=== PATIENT | male | born 2000 | race Caucasian/White ===

== ENCOUNTER 2021-08-16 18:10 | Emergency (ER) | payer OTHER ==
[~2021-08-16] VITALS: Ht 182.9 cm; Wt 100.0 kg
[2021-08-16 19:35] LABS: HEMATOCRIT 40.1 % (39.0-50.0); IMMATURE GRANULOCYTES 0.2 % (0.0-5.0); MEAN CELL VOLUME 86.1 fL CALC (80.0-100.0); MEAN CORPUSCULAR HGB CONC 34.9 g/dL CAL (32.0-36.0); NEUT# 2.18 thou/uL (1.82-7.42); RED BLOOD COUNT 4.66 mill/uL (4.70-6.10); RED CELL DISTRI WIDTH 11.7 % (11.5-15.5)
[2021-08-16 20:14] LABS: ALBUMIN 4.4 g/dL (3.2-5.0); ALKALINE PHOSPHATASE 69 u/l (38-126); AMYLASE 68 u/l (30-110); ANION GAP 11 (6-22 (CALC)); BILIRUBIN, TOTAL 0.6 mg/dL (0.0-1.4); BUN 9 mg/dL (9-20); BUN/CREATININE RATIO 10 (12-20 (CALC)); CARBON DIOXIDE 29 mmol/l (22-30); CHLORIDE 105 mmol/l (95-108); CREATININE 0.8 mg/dL (0.7-1.3); GFR > 60 ML/MIN (>=60 (CALC)); GFR FOR AFR.AMER. > 60 ML/MIN (>=60 (CALC)); LIPASE 21 u/l (23-300); POTASSIUM 3.8 mmol/l (3.5-5.1); SGOT/AST 34 u/l (17-59); SODIUM 141 mmol/l (137-146); TOTAL PROTEIN 7.4 g/dL (6.3-8.2)
[2021-08-16 20:18] LABS: D-DIMER 2.73 mg/L (0.19-0.60)
[2021-08-16 20:23] LABS: ACT PARTIAL THROMBO TIME 28.9 SECONDS (20.0-32.5); PROTHROMBIN TIME 10.6 SECONDS (9.0-12.5)
[2021-08-16 20:26] LABS: MYOGLOBIN 32 ng/mL (0 - 121)
[2021-08-17 00:57] VITALS: BP 108/68
== END 2021-08-17 01:17 | DRG 313 ==
LOC: ED 18:10
PROVIDERS: Family Medicine
DX: R07.89 Other chest pain (principal)
CPT/HCPCS: Q9967

== ENCOUNTER 2021-12-28 16:18 | Emergency (ER) | payer OTHER ==
[~2021-12-28] VITALS: Ht 182.9 cm; Wt 110.0 kg
[2021-12-28 17:31] LABS: HEMATOCRIT 41.3 % (39.0-50.0); HEMOGLOBIN 14.5 g/dl (14.0-18.0); IMMATURE GRANULOCYTES 0.2 % (0.0-5.0); MEAN CELL VOLUME 88.6 fL CALC (80.0-100.0); MEAN CORPUSCULAR HGB 31.1 pG CALC (26.0-32.0); MEAN CORPUSCULAR HGB CONC 35.1 g/dL CAL (32.0-36.0); NEUT# 10.31 thou/uL (1.82-7.42); RED BLOOD COUNT 4.66 mill/uL (4.70-6.10); RED CELL DISTRI WIDTH 11.6 % (11.5-15.5)
[2021-12-28 17:47] LABS: ALBUMIN 4.5 g/dL (3.2-5.0); ALKALINE PHOSPHATASE 75 u/l (38-126); ANION GAP 13 (6-22 (CALC)); BILIRUBIN, TOTAL 0.5 mg/dL (0.0-1.4); BUN 10 mg/dL (9-20); BUN/CREATININE RATIO 13 (12-20 (CALC)); CARBON DIOXIDE 27 mmol/l (22-30); CHLORIDE 102 mmol/l (95-108); CPK 99 u/l (52-200); CREATININE 0.7 mg/dL (0.7-1.3); ETHYL ALCOHOL 0 mg/dl (0-30); GFR FOR AFR.AMER. > 60 ML/MIN (>=60 (CALC)); GFR OTHER RACES > 60 ML/MIN (>=60 (CALC)); POTASSIUM 3.8 mmol/l (3.5-5.1); SGOT/AST 25 u/l (17-59); SODIUM 139 mmol/l (137-146); TOTAL PROTEIN 7.1 g/dL (6.3-8.2)
[2021-12-28 17:58] LABS: MYOGLOBIN 24 ng/mL (0 - 121)
[2021-12-28 19:23] LABS: URINE BILIRUBIN - DIPSTICK NEGATIVE (NEGATIVE); URINE BLOOD DIPSTICK NEGATIVE (NEGATIVE); URINE COLOR YELLOW; URINE GLUCOSE - DIPSTICK NEGATIVE (NEGATIVE); URINE KETONE NEGATIVE (NEGATIVE); URINE LEUK ESTERASE NEGATIVE (NEGATIVE); URINE PROTEIN - DIPSTICK NEGATIVE (NEG-TRACE); URINE UROBILINOGEN - DIPSTICK 0.2 E.U./dL (0.2)
[2021-12-28 19:24] LABS: URINE NITRITE - DIPSTICK NEGATIVE (Negative)
[2021-12-28] MEDS ORDERED: KEPPRA500 M2 PO (19:47)
[2021-12-28 20:03] VITALS: BP 109/48
--- NOTE | 2022-01-01 08:13 | NUR ---
PRELIMINARY BLOOD CULTURE RESULTS SHOW GRAM POSITIVE COCCOBACCILI IN 1 OF 4 VIALS. PER DEBI IN MICRO, THIS IS A CONTAMINANT/NORMAL SKIN COMFORT. NO F/U NEEDED AT THIS TIME.
== END 2021-12-28 20:00 | disposition home or self-care (01) | DRG 101 ==
LOC: ED 16:18
PROVIDERS: Nurse Practitioner
DX: R56.9 Unspecified convulsions (principal); F41.9 Anxiety disorder, unspecified; F17.200 Nicotine dependence, unspecified, uncomplicated; Z20.822 Contact with and (suspected) exposure to COVID-19
CPT/HCPCS: J1953